=== PATIENT | female | born 2005 | race Caucasian/White ===

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

== ENCOUNTER 2023-11-12 19:45 | Inpatient (IN) ==
--- NOTE | 2023-11-12 21:26 | History & Physical Report ---
Date of Service November 12, 2023 Assessment & Plan (1) Post term over 40 weeks: (2) Gestational diabetes mellitus (GDM) affecting , antepartum: (3) Need for rhogam due to Rh negative mother: (4) GBS (group B Streptococcus carrier), +RV culture, currently : (5) Elevated BP without diagnosis of hypertension: (6) Drug use affecting : (7) Current every day vaping: Plan based on my exam this pm, no lundberg balloon indicated. also ? early labor. Bp e levated and feel need to do labs and recheck at 4hr daisy to see if dx of gest htn met. If that is case will keep this pm for induction. If not, will be ok to send home to return in am. pt agreeable. nst reactive. labs ordered. History of Present Illness Chief Complaint: planned cx lundberg Primary Care Provider: Maximino Thomas PA-C 18yo at 40+wks ega presents to LD for planned cervical lundberg and showing elevated bp. Patient notes cramping, was 2cm in office and on exam today 3-4cm/80/-2. She denies mclaughlin, visual change, no ruq or epig pain. No edema. PNC c/b 1. MJ use in preg 2. GDM, diet, last efw 34% 3. Vaping daily 4. GBS pos 5. Rh neg. PNL rh neg, ri, gbs pos OBH: g1 GYNH: no stds. Allergies Allergy/AdvReac Type Severity Reaction Status Date / Time amoxicillin Allergy Severe throat Verified 11/12/23 13:10 swelling Home Medications Medication Instructions Recorded Confirmed Type albuterol sulfate 90 mcg/actuation 3 puff inhalation [id number] 11/12/19 11/12/23 History aerosol inhaler vitamin-ferrous sulfate 1 tab PO DAILY 11/12/23 11/12/23 History 27 mg iron-folic acid 0.8 mg tablet Patient History Medical History (Updated 11/12/23 @ 21:25 by Lian Hunter MD, FACOG) Chlamydia infection History of chicken pox Surgical History (Updated 03/28/23 @ 14:23 by Mai Gr) S/P wrist surgery S/P wisdom tooth extraction History of tonsillectomy and adenoidectomy Family History Grandfather (Maternal) Alcoholic fibrosis and sclerosis of liver Alcohol abuse Dyslipidemia Hypertension Hepatitis C Grandmother (Maternal) Alcohol abuse Dyslipidemia Hypertension Thyroid disease Stroke Myocardial infarction Mother Endometriosis Mitral valve prolapse Ovarian cyst Myocardial infarction Denies family history of Prostate cancer Colorectal cancer Social History (Updated 03/28/23 @ 14:23 by Mai Gr) Smoking Status: Current every day smoker Tobacco Type: E-cigarettes / Vaping Second Hand Exposure: No; Do You Dip or Chew Tobacco: No; Hx Alcohol Use: Yes Alcohol type: wine Hx Substance Use: No Preferred Language: Tristanian Communication Ability: Effective Dope And Fabric Worker Required: No Beliefs That Will Affect Care: None marital status: Single marital status details: guerda Trejo (18) [phone] Current Living Situation: Significant Other Current Living Situation Comment: lives with fob, dog, cat-fob changing litter current occupational status: employed current occupation: [employer] How many Children do You have: 0 Feels Safe at Home: Yes Safety Concerns: Feels Safe At This Time Gender Identity: Female Assistive Devices: None Review of Systems as per Subjective / HPI Physical Exam Constitutional: WD/WN, vitals as above Respiratory: normal respiratory effort, lungs clear to auscultation Cardiovascular: Rate/Rhythm: regular rate and regular rhythm Gastrointestinal (Abdomen): soft gravid nt efw 7-8# Musculoskeletal: no edema nontender calves Neurologic: grossly normal DTRs +2 no clonus Psychiatric: A+Ox3, euthymic affect Genitourinary: Manual OB Exam: + cervical dilation (3-4cm), + cervical effacement 80% and + station -2 OB Exam Monitor Tracing: + external FHT heidi tor used, + external uterine monitor used (q3-4), + category I (nst reactive) and + normal FHT variability SSE can see bulging membranes. Results & Data Vital Signs (Past 12 Hours) Vital Signs Temp Pulse Resp BP 11/12/23 20:37 73 140/84 11/12/23 20:06 82 144/92 H 11/12/23 19:55 99.0 F 18 11/12/23 19:54 80 142/95 H Coding Level of Care Code None Diagnoses Post term over 40 weeks O48.0 Gestational diabetes mellitus (GDM) affecting , antepartum O24.419 Need for rhogam due to Rh negative mother Z29.13 GBS (group B Streptococcus carrier), +RV culture, currently O99.820 Elevated BP without diagnosis of hypertension R03.0 Drug use affecting O99.320 Current every day vaping Z72.89
[2023-11-12 22:04] LABS: Basophils # (auto) 0.05 K/uL (0.00-0.20); Basophils % (auto) 0.3 %; Eosinophils # (auto) 0.03 K/uL (0.00-0.50); Eosinophils % (auto) 0.2 %; Hematocrit (blood only) 35.3 % (37.0-47.0); Hemoglobin 11.9 g/dl (12.0-16.0); Immature Granulocytes # (auto) 0.05 K/uL (0.01-0.20); Immature Granulocytes % (auto) 0.3 %; Lymphocytes # (auto) 2.66 K/uL (1.20-3.40); Lymphocytes % (auto) 16.4 %; Mean Corpuscular Hemoglobin 29.5 pg (25.0-34.0); Mean Corpuscular Hgb Conc 33.7 g/dL (32.0-36.0); Mean Corpuscular Volume 87.4 fL (80.0-100.0); Mean Platelet Volume 12.7 fL (9.4-12.4); Monocytes # (auto) 1.16 K/uL (0.11-0.59); Monocytes % (auto) 7.2 %; Neutrophils # (auto) 12.23 K/uL (1.40-6.50); Neutrophils % (auto) 75.6 %; Platelet Count 234 K/uL (130-400); RDW Coefficient of Variation 13.9 % (11.5-14.5); RDW Standard Deviation 44.5 fL (36.4-46.3); Red Blood Count 4.04 M/uL (4.20-5.40); White Blood Count 16.18 K/ul (4.8-10.8)
[2023-11-12 22:20] LABS: Albumin Globulin Ratio 1.2 (0.9-2); Albumin Level 3.7 gm/dl (3.4-5.0); BUN Creatinine Ratio 9.1 (10-20); Bilirubin Direct 0.1 mg/dl (0-0.2); Bilirubin,Total 0.3 mg/dl (0.2-1.0); Calcium 9.6 mg/dl (8.6-10.3); Creatinine Clr Calc Pharmacy 127.9 ml/min; Est GFR (African American) 147.4 ml/min; Est GFR (Non-African American) 127.2 ml/min; Total Protein 6.7 gm/dl (6.0-8.3)
[2023-11-12] MEDS ORDERED: OXYTOCIN 30 UNITS/NSS 30 UNITS/500 ML BAG IV PRN (22:27)
[2023-11-12] MEDS ORDERED: LIDOCAINE 1% LOCAL 20 ML VIAL INFIL PRN (22:27)
[2023-11-12] MEDS ORDERED: CALCIUM CARBONATE 500 MG CHEWABLE TAB PO PRN (22:27)
--- NOTE | 2023-11-12 22:32 | Obstetrical Progress Note ---
Date of Service November 12, 2023 Assessment & Plan (1) Post term over 40 weeks: (2) GBS (group B Streptococcus carrier), +RV culture, currently : (3) Elevated BP without diagnosis of hypertension: (4) Gestational diabetes mellitus (GDM) affecting , antepartum: (5) Need for rhogam due to Rh negative mother: (6) Drug use affecting : Plan admit pt in labor. suspect gest htn. plan bsgs in active labor. start vancomycin due to allergy to amox and no allergy testing done to ensure cephalosporin safe. drug screen due to mj use. no other drug use noted. rhogam eval pp. labs reviewed. pt desires epidural. Subjective pt feeling more pain with ctx, rating pain 8/10 per nurse Physical Exam Genitourinary: Manual OB Exam: + cervical dilation (per nurse) 5 cm Results & Data Vital Signs (Past 12 Hours) Vital Signs Temp Pulse Resp BP 11/12/23 21:42 75 159/92 H 11/12/23 20:37 73 140/84 11/12/23 20:06 82 144/92 H 11/12/23 19:55 99.0 F 18 11/12/23 19:54 80 142/95 H PG Care Time/CCT Total # of Minutes Spent Total Time Spent with Patient: Total time spent is greater than 50% in coordination of care (as documented) at patient's floor/unit and/or counseling patient: Coding Level of Care Code None Diagnoses Post term over 40 weeks O48.0 GBS (group B Streptococcus carrier), +RV culture, currently O99.820 Elevated BP without diagnosis of hypertension R03.0 Gestational diabetes mellitus (GDM) affecting , antepartum O24.419 Need for rhogam due to Rh negative mother Z29.13 Drug use affecting O99.320
[2023-11-12] MEDS: LACTATED RINGER'S 1,000 ML IV PRN (22:45)
[2023-11-12] MEDS: VANCOMYCIN HCL 1,000 MG in SODIUM CHLORIDE 0.9% 250 ML IV STA (23:03)
[2023-11-12] MEDS ORDERED: GENTAMICIN CONSULT ACTIVE PRN (23:03)
[2023-11-12] MEDS: TERBUTALINE SULFATE 1 MG/ML VIAL ONE (23:03)
--- NOTE | 2023-11-12 23:05 | Anesthesiology Consultation ---
Date of Service November 12, 2023 Assessment & Plan (1) Encounter for pre-operative examination: Chart Review Chart Review: Acceptable Risk for Surgery and Patient NOT seen in Pre Admission Testing Consults Requested none History Surgery Operation Date: 11/12/23 23:30 Proposed Procedures p Section in LD - Lian Hunter MD, FACOG Height/Weight Height: 5 ft Weight: 80.739 kg Allergies Allergy/AdvReac Type Severity Reaction Status Date / Time amoxicillin Allergy Severe throat Verified 11/12/23 13:10 swelling Medications Home Medications Medication Instructions Recorded Confirmed Last Taken albuterol sulfate 90 mcg/actuation 3 puff inhalation USEASDIRECTD 11/12/19 11/12/23 Unknown aerosol inhaler vitamin-ferrous sulfate 1 tab PO DAILY 11/12/23 11/12/23 11/12/23 27 mg iron-folic acid 0.8 mg tablet Active Medications Generic Name Dose Route Start Last Admin Trade Name Freq PRN Reason Stop Dose Admin Lactated Ringer's 1,000 mls @ 125 mls/hr 11/12/23 22:27 11/12/23 22:45 Lr IV 11/14/23 22:26 999 mls/hr .Q8H PRN Administration L&D Protocol Protocol Vancomycin HCl 1,000 mg/ 270 mls @ 200 mls/hr 11/12/23 22:27 11/12/23 23:03 Sodium Chloride IV 11/12/23 23:47 200 mls/hr NOW STA Administration Past Medical History Medical History (Updated 11/12/23 @ 23:04 by Geraldo Jacobs MD) Encounter for pre-operative examination Chlamydia infection History of chicken pox Exercise / Class Metabolic Activity II 4-5 Yardwork/Stairs/Walk up hill Past Family History Family History Grandfather (Maternal) Alcoholic fibrosis and sclerosis of liver Alcohol abuse Dyslipidemia Hypertension Hepatitis C Grandmother (Maternal) Alcohol abuse Dyslipidemia Hypertension Thyroid disease Stroke Myocardial infarction Mother Endometriosis Mitral valve prolapse Ovarian cyst Myocardial infarction Denies family history of Prostate cancer Colorectal cancer Past Surgical History Surgical History S/P wrist surgery S/P wisdom tooth extraction History of tonsillectomy and adenoidectomy Past Anesthesia History No Hx of Anesthesia Complications and No Family Hx of Anesthesia Complications Social History Smoking Status: Current every day smoker tobacco type: cigarettes Do You Dip or Chew Tobacco: No Hx Alcohol Use: Yes Alcohol type: wine alcohol intake frequency: a few times a month Hx Substance Use: Yes substance use type: marijuana Last Used Substance Other:: weeks ago Physical Exam Vital Signs Last Vital Signs Temp 37.2 C 11/12/23 19:55 Pulse 75 11/12/23 21:42 Resp 18 11/12/23 19:55 BP 159/92 H 11/12/23 21:42 Testing Laboratory Results 11/12/23 21:35 11/12/23 21:35 11/12/23 22:38 POC Glucose 84
[2023-11-12] MEDS ORDERED: fentaNYL citrate PF 100 MCG/2 ML VIAL ONE ×2 (23:09→23:30)
[2023-11-12] MEDS ORDERED: CLINDAMYCIN/D5W 900 MG/50 ML BAG IV ONE (23:15)
[2023-11-12] MEDS ORDERED: LACTATED RINGER'S 1,000 ML IV SCH (23:15)
[2023-11-12] MEDS ORDERED: SUCCINYLCHOLINE CHLORIDE 20 MG/ML 10 ML VIAL IV ONE (23:26)
[2023-11-12] MEDS ORDERED: ONDANSETRON INJ 2 MG/ML 2 ML VIAL ONE (23:26)
[2023-11-12] MEDS ORDERED: PROPOFOL IV EMULSION 10 MG/ML 20 ML VIAL IV ONE (23:26)
[2023-11-12] MEDS ORDERED: KETOROLAC 30 MG/ML VIAL ONE (23:26)
[2023-11-12] MEDS ORDERED: DEXAMETHASONE SOD INJ 4 MG/ML VIAL ONE (23:26)
[2023-11-12] MEDS ORDERED: GENTAMICIN SULFATE 400 MG in DEXTROSE 5% 100 ML IV ONE (23:30)
[2023-11-12 23:41] LABS: Base Excess Cord Venous Blood -10.9 mEq/L (-7.7-1.9); CO2 Cord Arterial Blood 74 mmHg (39.1-73.5); Cord Venous Blood HCO3 20 mmol/L (18.4-26.8); Cord Venous Blood PCO2 65 mmHg (30.4-57.2); Cord Venous Blood PO2 < 20 mmHg (14.1-43.3); Cord Venous Blood pH 7.09 (7.20-7.44); HCO3 Cord Arterial Blood 19 mmol/L (19.7-28.5); O2 Saturation Cord Venous Bld < 60.0 % (<68); Oxygen Sat Cord Arterial Blood < 60.0 % (<60); PO2 Cord Arterial Blood < 20 mmHg (4.1-31.7); pH Cord Arterial Blood 7.02 (7.1-7.38)
--- NOTE | 2023-11-12 23:51 | Operative Report ---
Post Operative Report Pre & Post Diagnosis Operation Date: 11/12/23 23:30 Pre-Op Diagnosis: 1. 40+wk iup 2. Spontaneous labor 3. Non reassuring heart tones 4. GDM 5. MJ use in 6. GBS positive Post-Op Diagnosis: 1. 40+wk iup 2. Spontaneous labor 3. Non reassuring heart tones 4. GDM 5. MJ use in 6. GBS positive I identified the patient and participated in the time-out.: Yes Procedure Operation Date: 11/12/23 23:30 Actual Procedures p Stat Primary Low Transverse Section in LD - Lian Hunter MD, FACOG Surgeon Lian Hunter MD, FACOG Gas Line Installer Supervisor RN Quantitative Blood Loss (QBL) 675cc Findings Consistent with Post-Op Diagnosis (viable male , apgars 8,9. Cord noted, body. Normal uterus tubes and ovaries bilaterally, peritoneal reaction tissue noted on posterior left uterine wall. ) Fluids 1200 Specimens cord blood cord gases Drains lundberg Anesthesia Type General Complications none Disposition Accompanied Patient To Recovery: No Disposition: L&D Indications 18yo at 40wks who presented for planned ripening balloon for induction in am who was in labor. While IV site being placed, despite prior reactive nst, fhts decreased to 80s and ivf bolus, position change, o2 applied. Measures did not resolve prolonged bradycardia and therefore fse applied, clear fluid noted. Cx was 7cm at that time. Terbutaline SQ given but bradycardia persisted and stat c/s called. Fhts 70-90s with variability but cx rechecked and still at 7cm, remote from delivery. Consent was obtained. Description of Procedure The patient was taken to the operating room and identified. Given nature of indication, she was prepped and draped and lundberg already placed. After adequate anesthesia was obtained, the knife was used to create a Pfannensteil skin incision that was carried down to the underlying layer of fascia. The fascia was nicked in the midline and this opening was extended laterally bluntly. The rectus muscles were bluntly and sharply dissected from fascia. The rectus muscles were bluntly in the midline. The peritoneal cavity was bluntly entered into. This opening was stretched. The bladder blade was placed. The vesicouterine peritoneum was elevated and opened up into and the bladder flap was created digitally and bladder blade was replaced. The knife was used to create a hysterotomy and this opening was stretched. The operators hand was placed through the hysterotomy and the bladder blade was removed. The head was elevated and flexed and with fundal pressure the head was delivered. The shoulders and body were rapidly delivered. The cord was clamped and cut and the infant was handed off to the awaiting pediatricians. Cord blood was obtained, cord gases were obtained. The placenta was manually expressed. The uterus was exteriorized and cleared of all clots and debris. Dilute IV Pitocin was begun. The uterine tone was improving. The hysterotomy was closed in a running interlocking fashion using 0 Vicryl followed by a second imbricating layer of 0 Vicryl. The hysterotomy was hemostatic. The pelvis was irrigated. The uterus was returned to the abdomen. The gutters were cleared of all clots and debris. The hysterotomy was reinspected and noted to be hemostatic. Although due to slight oozing at the left corner of hysterotomy, perclot was applied. The fascia was then closed in running fashion using 0 Vicryl. The subcutaneous fat was copiously irrigated and reapproximated using 2-0 chromic. The skin was closed in a subcuticular fashion using 4-0 monocryl. At this point the procedure was terminated. The patient was awoken from anesthesia and transferred to the recovery room in stable condition. All sponge, lap and needle counts are correct x2. I attest to the content of the Intraoperative Record and any orders documented therein. Any exceptions are noted below. OB Procedure Charges 86353
--- NOTE | 2023-11-13 00:06 | Anesthesiology Progress Note ---
Date of Service November 13, 2023 Anesthesia Post Procedure Vital Signs Vital Signs: Temp Pulse Resp BP Pulse Ox 11/13/23 00:04 96 H 110/70 11/13/23 00:03 98 H 99 11/12/23 23:59 109 H 11/12/23 23:59 136/66 11/12/23 23:58 99 11/12/23 23:58 98 H 11/12/23 23:54 100 H 11/12/23 23:54 136/62 11/12/23 21:42 75 159/92 H 11/12/23 20:37 73 140/84 11/12/23 20:06 82 144/92 H 11/12/23 19:55 37.2 C 18 11/12/23 19:54 80 142/95 H Transfer of Care Handoff Completed per policy Notes Mental Status: alert / awake / arousable and participated in evaluation Patient Amnestic to Procedure: Yes Nausea / Vomiting: adequately controlled Pain: adequately controlled Airway Patency, RR, SpO2: stable & adequate BP & HR: stable & adequate Hydration State: stable & adequate Anesthetic Complications: no major complications apparent and Pt Satisfied with anesthetic care
[2023-11-13] MEDS ORDERED: diphenhydrAMINE Capsule 25 MG CAP PO PRN (00:09)
[2023-11-13] MEDS ORDERED: MAGNESIUM HYDROXIDE SUSP 30 ML UDC PO PRN (00:09)
[2023-11-13] MEDS ORDERED: SENNA 8.6 MG TAB PO PRN (00:09)
[2023-11-13] MEDS ORDERED: BENZOCAINE 20% SPRY 85 APPLN/85 GM CAN EXT PRN (00:09)
[2023-11-13] MEDS ORDERED: HYDROCORTISONE ACETATE 25 MG SUPP PR PRN (00:09)
[2023-11-13] MEDS ORDERED: NALOXONE HCL 0.4 MG/1 ML VIAL/CARP IV PRN (00:09)
[2023-11-13] MEDS ORDERED: diphenhydrAMINE 50 MG/ML VIAL IV PRN (00:09)
[2023-11-13] MEDS ORDERED: KETOROLAC 30 MG/ML VIAL IV PRN (00:09)
[2023-11-13] MEDS ORDERED: ALBUTEROL HFA 8 GM INHALER INH PRN (00:09)
[2023-11-13] MEDS ORDERED: PROMETHAZINE HCL 25 MG in SODIUM CHLORIDE 0.9% 50 ML IV PRN (00:09)
[2023-11-13] MEDS ORDERED: ZOLPIDEM TARTRATE 5 MG TAB PO PRN (00:09)
[2023-11-13] MEDS ORDERED: LACTATED RINGER'S 1,000 ML IV SCH ×2 (00:09→00:15)
[2023-11-13] MEDS ORDERED: ONDANSETRON INJ 2 MG/ML 2 ML VIAL IV PRN (00:09)
[2023-11-13 00:25] LABS: Total Protein Urine Random 43.1 mg/dl (0-11.9)
[2023-11-13 00:31] LABS: Creatinine Urine Random 234.9 mg/dl; Protein Creatinine Ratio Urine 0.2 (0-0.2)
[2023-11-13 00:52] LABS: Amphetamines+Metham, Urine Neg (Neg); Barbiturates, Urine Neg (Neg); Benzodiazepine, Urine Neg (Neg); Cocaine, Urine Neg (Neg); Fentanyl, Urine Neg (Neg); MDMA (Ecstacy), Urine Neg (Neg); Marijuana, Urine Pos (Neg); Methadone, Urine Neg (Neg); Opiate, Urine Neg (Neg); Phencyclidine, Urine Neg (Neg)
--- NOTE | 2023-11-13 00:58 | Communication Note ---
Date of Service: November 13, 2023 Late entry. The following describes circumstances of patient presentation in LD requiring stat c/s for which this documentation previously was not possible due to acuity of situation. Called by nursing we concern for bradycardia, not relieved by position change. On arrival, sve 7cm and fhts notably in 80s. good variability. FSE applied confirming fhts. of note pt now in more pain with ctx and had requested epidural but only able to get iv site shortly before my arrival. IVF bolus going, O2 applied. Clear fluid noted with fse placement. Some scalp stim response to 90s but no return to normal baseline noted. Pt in knee chest. Peds updated about possible need for emergency delivery. Terbutaline SQ given to see if spont labor pattern could be slowed to allow recovery. None of these interventions were resulting in normal fht baseline although variability of fhts were good. SVE again only 7cm and being remote from delivery, stat c/s called. Peds and anesth notified. OR readied. Need to proceed reviewed with pt who agreed and consent reviewed and signed. Due to acute nature with cont bradycardia, general anesth rec. Patient had friend in room with her and allowed to ask ?s. Bradycardia despite interventions was worsening to 70-80s at time of moving pt to c/s room.
[2023-11-13] MEDS: HYDROmorphone PCA 30 MG/30 ML IV PRN (01:03)
[2023-11-13] MEDS: SODIUM CHLORIDE 0.9% 1,000 ML IV SCH (01:58)
[2023-11-13] MEDS: OXYTOCIN 20 UNITS/LR 1,002 ML IV SCH (01:59)
--- NOTE | 2023-11-13 08:21 | Obstetrical Progress Note ---
Date of Service November 13, 2023 Assessment & Plan (1) care and examination: Plan stable, doing well. plan adv diet and if maday, can plan to change to po pain meds. await spont void and plan to remove cath at noon. no cbc back yet, need to have lab come back to draw. watch bps. so far ok. rhogam eval pending. Day #:: 1 Subjective Ambulation: limited ambulation Voiding: lundberg catheter in place Diet Tolerance:: clear liquids Lochia:: Small Feeding Type:: breast feeding pain control good. feels well. no pain issues. no n/v, no cp or sob. Constitutional: + as per Subjective / HPI Physical Exam Constitutional WD/WN, vitals as above Respiratory normal respiratory effort, lungs clear to auscultation Cardiovascular Rate/Rhythm: regular rate and regular rhythm Gastrointestinal (Abdomen) Inspection/Auscultation: abdomen normal to inspection and + abdominal surgical incision (dressing c/d/i) Percussion/Palpation: abdomen soft Fundus firm 2cm down Musculoskeletal nt calves tr edema Neurologic grossly normal Psychiatric A+Ox3, euthymic affect Results & Data Vital Signs (Past 12 Hours) Vital Signs Temp Pulse Pulse Resp BP BP Pulse Ox 11/13/23 07:41 98.8 F 88 18 126/90 97 11/13/23 03:01 16 98 11/13/23 02:15 106 H 143/91 H 11/13/23 02:13 101 H 98 11/13/23 02:08 108 H 98 11/13/23 02:05 99 H 141/96 H 11/13/23 02:03 96 H 98 11/13/23 02:00 18 11/13/23 01:58 97 H 99 11/13/23 01:55 78 11/13/23 01:55 146/87 H 11/13/23 01:55 101 H 160/98 H 11/13/23 01:53 92 H 99 11/13/23 01:48 90 98 11/13/23 01:45 85 152/91 H 11/13/23 01:43 90 98 11/13/23 01:38 88 98 11/13/23 01:35 90 146/85 H 11/13/23 01:33 90 98 11/13/23 01:30 18 11/13/23 01:30 98.2 F 18 11/13/23 01:28 104 H 96 11/13/23 01:25 97 H 145/80 H 11/13/23 01:23 96 H 98 11/13/23 01:18 119 H 100 11/13/23 01:15 91 H 145/84 H 11/13/23 01:13 96 H 98 11/13/23 01:08 108 H 99 11/13/23 01:05 107 H 144/93 H 11/13/23 01:03 106 H 100 11/13/23 00:58 107 H 99 11/13/23 00:55 97 H 140/92 11/13/23 00:53 102 H 99 11/13/23 00:48 106 H 99 11/13/23 00:45 100 H 138/66 11/13/23 00:43 103 H 99 11/13/23 00:38 89 100 11/13/23 00:35 90 129/67 11/13/23 00:33 95 H 100 11/13/23 00:28 90 100 11/13/23 00:25 96 H 124/83 11/13/23 00:23 100 H 100 11/13/23 00:18 106 H 100 11/13/23 00:15 99 H 116/70 11/13/23 00:13 103 H 100 11/13/23 00:08 91 H 99 11/13/23 00:06 92 H 90 11/13/23 00:04 96 H 110/70 11/13/23 00:03 98 H 99 11/13/23 00:00 98.1 F 18 11/12/23 23:59 109 H 11/12/23 23:59 136/66 11/12/23 23:58 99 11/12/23 23:58 98 H 11/12/23 23:54 100 H 11/12/23 23:54 136/62 11/12/23 21:42 75 159/92 H 11/12/23 20:37 73 140/84 O2 Del Method 11/13/23 07:41 Room Air 11/13/23 03:01 11/13/23 02:15 11/13/23 02:13 11/13/23 02:08 11/13/23 02:05 11/13/23 02:03 11/13/23 02:00 11/13/23 01:58 11/13/23 01:55 11/13/23 01:55 11/13/23 01:55 11/13/23 01:53 11/13/23 01:48 11/13/23 01:45 11/13/23 01:43 11/13/23 01:38 11/13/23 01:35 11/13/23 01:33 11/13/23 01:30 11/13/23 01:30 11/13/23 01:28 11/13/23 01:25 11/13/23 01:23 11/13/23 01:18 11/13/23 01:15 11/13/23 01:13 11/13/23 01:08 11/13/23 01:05 11/13/23 01:03 11/13/23 00:58 11/13/23 00:55 11/13/23 00:53 11/13/23 00:48 11/13/23 00:45 11/13/23 00:43 11/13/23 00:38 11/13/23 00:35 11/13/23 00:33 11/13/23 00:28 11/13/23 00:25 11/13/23 00:23 11/13/23 00:18 11/13/23 00:15 11/13/23 00:13 11/13/23 00:08 11/13/23 00:06 11/13/23 00:04 11/13/23 00:03 11/13/23 00:00 Room Air 11/12/23 23:59 11/12/23 23:59 11/12/23 23:58 11/12/23 23:58 11/12/23 23:54 11/12/23 23:54 11/12/23 21:42 11/12/23 20:37
[2023-11-13] MEDS: SIMETHICONE 80 MG CHEW PO SCH (08:30)
[2023-11-13] MEDS: PRENATAL VITAMIN 1 TAB PO SCH (08:31)
[2023-11-13] MEDS: FERROUS SULFATE 325 MG TAB PO SCH (08:31)
[2023-11-13] MEDS: DOCUSATE SODIUM 100 MG CAP PO SCH (08:32)
[2023-11-13] MEDS ORDERED: VANCOMYCIN HCL 1,000 MG in SODIUM CHLORIDE 0.9% 250 ML IV PRN (09:28)
[2023-11-13] MEDS: oxyCODONE/ACETAMINOPHEN 5mg/325mg TAB PO PRN (12:18)
[2023-11-13] MEDS: IBUPROFEN 600 MG TAB PO PRN (12:19)
[2023-11-13 12:45] LABS: Basophils # (auto) 0.02 K/uL (0.00-0.20); Basophils % (auto) 0.2 %; Hematocrit (blood only) 25.1 % (37.0-47.0); Hemoglobin 8.4 g/dl (12.0-16.0); Immature Granulocytes # (auto) 0.04 K/uL (0.01-0.20); Immature Granulocytes % (auto) 0.4 %; Lymphocytes % (auto) 9.9 %; Mean Corpuscular Hemoglobin 29.7 pg (25.0-34.0); Mean Corpuscular Hgb Conc 33.5 g/dL (32.0-36.0); Mean Corpuscular Volume 88.7 fL (80.0-100.0); Mean Platelet Volume 12.7 fL (9.4-12.4); Monocytes # (auto) 0.82 K/uL (0.11-0.59); Monocytes % (auto) 7.4 %; Neutrophils # (auto) 9.16 K/uL (1.40-6.50); Neutrophils % (auto) 82.1 %; Platelet Count 164 K/uL (130-400); RDW Standard Deviation 45.3 fL (36.4-46.3); Red Blood Count 2.83 M/uL (4.20-5.40); White Blood Count 11.14 K/ul (4.8-10.8)
[2023-11-13] MEDS: DIPHTHER/TETAN/PERTUS Vaccine (Tdap, Adol/Adult) 0.5mL IM ONE (17:17)
[2023-11-13] MEDS: bisacodyL 5 MG TABEC PO SCH (21:03)
[2023-11-14 06:34] LABS: Hematocrit (blood only) 23.4 % (37.0-47.0); Hemoglobin 7.7 g/dl (12.0-16.0)
--- NOTE | 2023-11-14 08:30 | Obstetrical Progress Note ---
Date of Service November 14, 2023 Assessment & Plan (1) care and examination: D/C home today Subjective Ambulation: ambulating normally Voiding: no voiding problems Passing Gas:: Yes Diet Tolerance:: regular diet Lochia:: Small Feeding Type:: breast feeding Physical Exam Constitutional WD/WN, vitals as above Eyes PERRL, conjunctivae normal, anicteric sclerae Neck normal visual inspection Respiratory normal respiratory effort and able to speak in complete sentences; no respiratory distress and no labored breathing Cardiovascular Rate/Rhythm: regular rate and regular rhythm Extremities: no edema Chest (Breasts) Chest: normal inspection of chest Gastrointestinal (Abdomen) Inspection/Auscultation: abdomen normal to inspection Soft, postgravid C/D/I Psychiatric A+Ox3, euthymic affect Genitourinary OB Exam Abdomen: + fundal height Fundus: + firm and + relation to umbilicus (fundus just below umbilicus); not tender Results & Data Vital Signs (Past 12 Hours) Vital Signs Temp Pulse Resp BP Pulse Ox O2 Del Method 11/14/23 00:32 99.1 F 112 H 20 134/85 98 Room Air 11/13/23 21:00 98.8 F 94 H 20 130/78 99 Room Air
[2023-11-14] MEDS ORDERED: bisacodyL 10 MG SUPP PR PRN (23:58)
[2023-11-15 13:47] LABS: Marijuana Quant, GCMS Urine 163 ng/mL (<5)
== END 2023-11-14 16:25 | disposition home or self-care (01) | DRG 787 ==
LOC: OPB 19:45 → 4S1 19:46 → 4E2 11-13 02:43